=== PATIENT | female | born 1980 | race Caucasian/White ===

== ENCOUNTER 2016-07-15 17:20 | Emergency (ER) | payer MEDICAID ==
[~2016-07-15] VITALS: Wt 68.5 kg
[2016-07-15] MEDS ORDERED: CYCLOBENZAPRINE 10 MG TAB PO ONE (18:00)
[2016-07-15] MEDS ORDERED: HYDROCODONE/APAP (10/325) TAB PO ONE (18:00)
[2016-07-15] MEDS ORDERED: KETOROLAC 60 MG INJ IM STA (19:11)
--- NOTE | 2016-07-15 19:35 | RADRPT ---
PROCEDURE: XR Lumbar Spine. CLINICAL INDICATION: Low back pain. TECHNIQUE: AP and lateral views of the lumbar spine were obtained. COMPARISON: None. FINDINGS: Mineralization is within normal limits. Vertebral bodies are normal in height. No fracture is iden tified. Lumbar lordosis is preserved. No vertebral subluxation is seen. The intervertebral discs are decreased in height at L4-5 and L5-S1. Anterior spondylosis is greatest at L4-5. Paraspinal co ntours are unremarkable. RPTAT:HJJR IMPRESSION: Degenerative disk disease greatest at L4-5 and to a lesser extent L5-S1. Physician John Date Time Electronically viewed and signed by Physician John on 07/15/2016 19:35 /
[2016-07-15] MEDS ORDERED: ORPH100T PO (19:39)
[2016-07-15] MEDS ORDERED: IBUP-1542 PO (19:39)
[2016-07-15] MEDS ORDERED: HYDR-902 PO (19:39)
--- NOTE | 2016-07-15 19:44 | ERD ---
ER Documentation Chief Complaint Date/Time DATE: 07/15/16 TIME: 19:41 Chief Complaint BACK PAIN SINCE LAST NIGHT HPI This is a 36-year-old female presents to the ER with chronic back pain. Patient has had this pain over the last few years. Over the last 24 hours she states that pain is worse and he feels as if someone is grabbing her bones together. Pain is nonradiating. She denies any numbness or tingling of extremity. She denies any urinary bowel incontinence she denies any saddle like anesthesia. She denies any recent trauma. She denies any fevers or chills. She has not tried anything for the pain. ROS 12 point review of systems was done, all negative except per HPI. Medications Home Meds Active Scripts Ibuprofen* (Ibuprofen*) 600 Mg Tablet, 600 MG PO Q6 for 3 Days, TAB Prov:COLTON,ANISH C 07/15/16 Orphenadrine Citrate (Norflex) 100 Mg Tablet.sa, 100 MG PO BID for 7 Days, TAB.SA Prov:COLTON,ANISH C 07/15/16 Hydrocodone/Acetaminophen (Laquey 10-325 Tablet) 1 Each Tablet, 1 TAB PO Q6H Y for PAIN, #20 TAB Prov:COLTON,ANISH C 07/15/16 Allergies Allergies: Coded Allergies: Penicillins (Verified Allergy, Unknown, 02/21/14) PMhx/Soc History of Surgery: No Anesthesia Reaction: No Hx Neurological Disorder: No Hx Respiratory Disorders: No Hx Cardiac Disorders: No Hx Psychiatric Problems: No Hx Miscellaneous Medical Probl: No Hx Alcohol Use: No Hx Substance Use: No Hx Tobacco Use: Yes Smoking Status: Never smoker Physical Exam Vitals Vital Signs Date Time Temp Pulse Resp B/P Pulse Ox O2 Delivery O2 Flow Rate FiO2 07/15/16 17:23 98.0 100 18 105/74 99 Physical Exam GENERAL: The patient is well developed and appropriate for usual state of health , in no apparent distress. NECK: C-spine is soft and supple. There is no cervical lymphadenopathy. CHEST: Clear to auscultation bilaterally. There are no rales, wheezes or rhonchi. HEART: Regular rate and rhythm. No murmurs, clicks, rubs or gallops. ABDOMEN: Soft, nontender and nondistended. Good bowel sounds. No rebound or guarding. No gross peritonitis. No gross organomegaly or masses. No Rivera sign or McBurney point tenderness. No pulsatile abdominal mass. BACK: No midline or flank tenderness. Tender to palpation from L3-L5. Tense paraspinal muscles. Negative leg raise test. No step- offs. EXTREMITIES: Equal pulses bilaterally. There is no peripheral clubbing, cyanosis or edema. No focal swelling or erythema. Full range of motion. Grossly neurovascularly intact. NEURO: Alert and oriented. Cranial nerves II through XII are intact. Motor strength in all 4 extremities with 5/5 strength. Sensation grossly intact. Normal speech and gait. SKIN: There is no apparent rash or petechia. The skin is warm and dry. Results 24 hrs Current Medications Medications (Trade) Dose Ordered Sig/Soheila Route PRN Reason Start Time Stop Time Status Last Admin Dose Admin Acetaminophen/ Hydrocodone Bitart (Laquey (10/325)) 1 tab ONCE ONCE PO 07/15/16 18:00 07/15/16 18:01 DC 07/15/16 18:08 Cyclobenzaprine HCl (Flexeril) 10 mg ONCE ONCE PO 07/15/16 18:00 07/15/16 18:01 DC 07/15/16 18:08 Ketorolac Tromethamine (Toradol) 60 mg ONCE STAT IM 07/15/16 19:11 07/15/16 19:12 DC Procedures/MDM Differential Diagnosis includes but is not limited to back strain, vertebral fracture, epidural abscess, cauda equina, herniated disc, AAA rupture, kidney stones, UTI, pyelonephritis. At this time patient has had back pain for the last few years is likely acute on chronic pain. Patient is neurovascularly intact and has full range of motion of bilateral lower extremities. She is afebrile and well-appearing I doubt infectious process. Patient has not had a history of trauma I doubt cauda equina or any fractures. Patient be sent home with Laquey and Norflex and ibuprofen. She is to follow-up with her primary care doctor within 1-2 days return to ER sooner if symptoms worsen. My medical decision making was shared with patient she understands and agrees with plan. Departure Diagnosis: Primary Impression: Chronic back pain Condition: Stable Patient Instructions: Back Pain (Acute Or Chronic) Additional Instructions: Call your primary care doctor TOMORROW for an appointment during the next 1-2 days.See the doctor sooner or return here if your condition worsens before your appointment time. ANISH SEGURA July 15, 2016 19:44
[2016-07-15 20:22] VITALS: BP 127/64; PULSE 113; RESP 20
== END 2016-07-15 20:23 | disposition home or self-care (01) ==
LOC: FTE 17:20
DX: M54.5 Low back pain (principal); Z87.891 Personal history of nicotine dependence
CPT/HCPCS: 72100; 96372; J1885; Z7502; Z7610

== ENCOUNTER 2017-09-18 09:11 | Emergency (ER) | END 2017-09-18 13:55 | disposition home or self-care (01) ==